=== PATIENT | female | born 1960 | race Caucasian/White ===

== ENCOUNTER 2018-03-09 18:19 | Emergency (ER) | payer OTHER ==
[~2018-03-09] VITALS: Ht 167.6 cm; Wt 65.8 kg
== END 2018-03-09 23:09 | disposition home or self-care (01) ==
LOC: ER 18:19
DX: J32.8 Other chronic sinusitis (principal); G51.0 Bell's palsy

== ENCOUNTER 2018-12-20 11:24 | Outpatient (CLI) | payer OTHER | END 2018-12-20 12:00 | disposition home or self-care (01) | LOC: NUCLEAR 11:24 | DX: M85.80 Other specified disorders of bone density and structure, unspecified site (principal) ==

== ENCOUNTER 2018-12-20 14:55 | Outpatient (CLI) | payer OTHER | END 2018-12-20 14:56 | disposition home or self-care (01) | LOC: MAMO-SONO 14:55 | DX: N64.89 Other specified disorders of breast (principal); M85.80 Other specified disorders of bone density and structure, unspecified site; N83.11 Corpus luteum cyst of right ovary; N83.12 Corpus luteum cyst of left ovary; Z12.31 Encounter for screening mammogram for malignant neoplasm of breast ==

== ENCOUNTER 2019-01-10 08:28 | Outpatient (CLI) | payer OTHER | END 2019-01-10 08:39 | disposition home or self-care (01) | LOC: TOM 08:28 | DX: R10.9 Unspecified abdominal pain (principal) ==

== ENCOUNTER 2020-08-18 14:33 | Outpatient (CLI) | payer OTHER | END 2020-08-18 14:44 | disposition home or self-care (01) | LOC: MAMO-SONO 14:33 | PROVIDERS: ATTEND Obstetrics & Gynecology | DX: Z12.31 Encounter for screening mammogram for malignant neoplasm of breast (principal); N60.01 Solitary cyst of right breast; N84.0 Polyp of corpus uteri ==

== ENCOUNTER → 2020-08-30 07:34 | Outpatient (CLI) | payer OTHER | END | disposition home or self-care (01) | LOC: RAD 07:34 | PROVIDERS: ATTEND Obstetrics & Gynecology | DX: R05 Cough (principal); E78.89 Other lipoprotein metabolism disorders ==

== ENCOUNTER 2021-06-02 14:21 | Outpatient (CLI) | payer OTHER | END 2021-06-02 14:22 | disposition home or self-care (01) | LOC: NUCLEAR 14:21 | PROVIDERS: ATTEND Internal Medicine | DX: M81.0 Age-related osteoporosis without current pathological fracture (principal) ==

== ENCOUNTER 2023-05-15 17:28 | Emergency (ER) | payer OTHER ==
[~2023-05-15] VITALS: Ht 167.6 cm; Wt 64.4 kg
[2023-05-15] MEDS ORDERED: ANASTROZOLE1 MG PO (17:41)
== END 2023-05-15 18:46 | disposition home or self-care (01) ==
LOC: ER 17:28
DX: H92.02 Otalgia, left ear (principal); Z88.6 Allergy status to analgesic agent

== ENCOUNTER 2023-10-24 12:58 | Outpatient (CLI) | payer OTHER ==
[~2023-10-24 12:58] MED LIST: ANASTROZOLE1 MG PO
== END 2023-10-24 13:01 | disposition home or self-care (01) ==
LOC: NUCLEAR 12:58
PROVIDERS: ATTEND Internal Medicine
DX: C50.411 Malignant neoplasm of upper-outer quadrant of right female breast (principal)

== ENCOUNTER 2025-08-02 16:36 | Emergency (ER) | payer OTHER ==
[~2025-08-02] VITALS: Ht 162.6 cm; Wt 65.8 kg
[~2025-08-02 16:36] MED LIST changes: +NORFLEX100MG PO; +PEPCID AC20 MG PO
[2025-08-02] MEDS ORDERED: DEXAMETHASONE SODIUM PHOSP/PF 10 MG/ML VIAL IV STA (17:20)
[2025-08-02] MEDS ORDERED: ORPHENADRINE CITRATE 30 MG/ML AMPUL IM STA (17:20)
[2025-08-02] MEDS ORDERED: MEDROLPACK PO (18:38)
== END 2025-08-02 19:34 | disposition home or self-care (01) ==
LOC: ER 16:36
DX: S93.491A Sprain of other ligament of right ankle, initial encounter (principal); Z88.6 Allergy status to analgesic agent; Z85.3 Personal history of malignant neoplasm of breast